=== PATIENT | male | born 1960 | race Two or more races ===

== ENCOUNTER 2016-05-27 10:25 | Emergency (ER) | payer OTHER ==
[~2016-05-27] VITALS: Ht 188 cm; Wt 99.8 kg
[2016-05-27] MEDS ORDERED: IBUPROFEN 400 MG TABLET ONE (10:50)
[2016-05-27] MEDS ORDERED: IBUPROFEN 400 MG TABLET PO ONE (11:00)
== END 2016-05-27 11:28 | disposition home or self-care (01) ==
LOC: ER 10:32
DX: S80.02XA Contusion of left knee, initial encounter (principal); I10 Essential (primary) hypertension; V43.92XA Unspecified car occupant injured in collision with other type car in traffic accident, initial encounter; Y93.89 Activity, other specified; Y92.89 Other specified places as the place of occurrence of the external cause; Y99.9 Unspecified external cause status
CPT/HCPCS: 29505; 73564; 99284; A4606